=== PATIENT | female | born 1955 | race Caucasian/White ===

== ENCOUNTER → 2016-09-18 11:00 | Outpatient (CLI) | payer BC | END | disposition home or self-care (01) | LOC: D.RT 11:00 | DX: J44.9 Chronic obstructive pulmonary disease, unspecified (principal) ==

== ENCOUNTER → 2017-08-06 08:01 | Outpatient (CLI) | payer OTHER | END | disposition home or self-care (01) | LOC: D.CT 08:01 | DX: J44.9 Chronic obstructive pulmonary disease, unspecified (principal) ==

== ENCOUNTER → 2018-07-17 07:39 | Outpatient (CLI) | payer OTHER | END | disposition home or self-care (01) | LOC: D.RT 07-10 08:00 → D.CT 07-10 09:30 → D.RT 07:39 | DX: R91.8 Other nonspecific abnormal finding of lung field (principal); J44.9 Chronic obstructive pulmonary disease, unspecified ==